=== PATIENT | male | born 1985 | race African-American/Black ===

== ENCOUNTER 2020-05-28 18:51 | Emergency (ER) | payer BC ==
[~2020-05-28] VITALS: Ht 165.1 cm; Wt 63.5 kg
[2020-05-28] MEDS ORDERED: LIDOCAINE HCL/EPINEPHRINE 1%-EPI 1:100,000 20 ML VIAL INFIL ONE (20:00)
[2020-05-28 20:49] VITALS: BP 111/71
[2020-05-28] MEDS ORDERED: TETANUS, DIPHTHERIA, PERTUSSIS VAC/PF 0.5ML (>7YR OLD) IM ONE (21:15)
[2020-05-28] MEDS ORDERED: BACITRACIN ZINC OINT UDPKT TOP ONE (21:30)
== END 2020-05-28 21:58 | disposition home or self-care (01) ==
LOC: ER 18:51
DX: S61.512A Laceration without foreign body of left wrist, initial encounter (principal); W25.XXXA Contact with sharp glass, initial encounter; Y93.G1 Activity, food preparation and clean up; Y92.010 Kitchen of single-family (private) house as the place of occurrence of the external cause
CPT/HCPCS: 12001; 73110; 90471; 90715; 99283; J3490